=== PATIENT | male | born 1990 | race African-American/Black ===

== ENCOUNTER 2019-06-08 01:08 | Emergency (ER) | payer SELFPAY ==
[2019-06-08] MEDS ORDERED: Proparacaine 0.5% Ophth Soln 15 ML Bottle EYEBOTH ONE (01:18)
[2019-06-08] MEDS ORDERED: prednisoLONE Acetate 1% Ophth Susp 5 ML Bottle EYEBOTH SCH (02:00)
--- NOTE | 2019-06-08 02:00 | EDM.PDOC ---
ED HPI GENERAL MEDICAL PROBLEM - General Chief Complaint: ENT Problem Stated Complaint: BOTH EYES ARE SORE Time Seen by Provider: 06/08/19 01:32 Source of Information: Reports: Patient History Limitations: Reports: No Limitations - History of Present Illness INITIAL COMMENTS - FREE TEXT/NARRATIVE: TRIAGE NOTE -- patient c/o bilateral eye pain, decreased vision and watering. patient unsure what is in his eyes, pt works as a [employer]. pain started 1 hr ago Above-noted. Onset was actually about 2 hours ago. Noted right after he had gotten out of the shower where he had used a body wash the type of which he had never used before. He does not recall actually getting some in his eyes but immediately after he got out of the shower he had pain light sensitivity and redness of his eyes and as it was not improving he came to the ER. No other risk factors are identified. Patient did not take any medication or tried any other measure to moderate his symptoms prior to arrival. Bilateral Eye Pain Score (Numeric/FACES): 10 - Related Data Allergies Allergy/AdvReac Type Severity Reaction Status Date / Time No Known Allergies Allergy Verified 06/08/19 01:21 Home Meds: Home Meds . [No Known Home Meds] 06/08/19 [History] Past Medical History - Past Health History Medical/Surgical History: Denies Medical/Surgical History Social & Family History - Tobacco Use Smoking Status *Q: Never Smoker ED ROS ENT - Review of Systems Review Of Systems: Comprehensive ROS is negative, except as noted in HPI. ED EXAM, ENT - Physical Exam Exam: See Below Exam Limited By: No Limitations General Appearance: Alert, WD/WN, Other (Obvious photophobia) Eye Exam: Bilateral Eye: Conjunctival Injection (Conjunctiva edematous bilaterally), EOMI, PERRL Ears: Normal External Exam Nose: Normal Inspection Mouth/Throat: Normal Inspection Head: Atraumatic, Normocephalic Neck: Normal Inspection, Supple Respiratory/Chest: No Respiratory Distress, Lungs Clear Cardiovascular: Regular Rate, Rhythm GI/Abdominal: Soft, Non-Tender Back: Normal Inspection Extremities: Normal Inspection Neurological: Alert, Oriented, Normal Cognition, No Motor/Sensory Deficits Psychiatric: Normal Affect, Normal Mood Course - Vital Signs Last Recorded V/S: Last Vital Signs Temp 36.1 C 06/08/19 01:18 Pulse 60 06/08/19 01:18 Resp 16 05/02/20 01:18 BP 142/94 H 06/08/19 01:18 Pulse Ox 100 06/08/19 01:18 - Orders/Labs/Meds Orders: Active Orders 24 hr Category Date Time Status Dexamethasone/Tobramycin [Tobradex Ophth Susp] Med 06/08/19 02:15 Ordered 1 ml EYEBOTH NOW Medication Orders Tobramycin/Dexamethasone (Tobradex Ophth Susp) 1 ml EYEBOTH NOW DAHLIA Meds: Medications Generic Name Dose Route Start Last Admin Trade Name Freq PRN Reason Stop Dose Admin Tobramycin/Dexamethasone 1 ml 06/08/19 02:15 Tobradex Ophth Susp EYEBOTH NOW DAHLIA Discontinued Medications Generic Name Dose Route Start Last Admin Trade Name Freq PRN Reason Stop Dose Admin Prednisolone Acetate 1 ml 06/08/19 02:00 Pred Forte 1% Ophth Susp EYEBOTH NOW DAHLIA Proparacaine HCl 2 ml 06/08/19 01:18 06/08/19 01:22 Proparacaine 0.5% Ophth Soln EYEBOTH 06/08/19 01:19 1 drop ONETIME ONE Administration - Re-Assessments/Exams Free Text/Narrative Re-Assessment/Exam: 06/08/19 02:11 On the basis of the history as well as the exam it appears that the patient has a chemical conjunctivitis from something in the body wash he used 2 hours ago. Patient is photophobic to the extent visual acuity cannot be accurately assessed. Discussed with Dr. العراقي construction code administrator transport engineer in [place]. She recommended instilling TobraDex drops and that is ordered. She will see the patient at 10 AM today in the [facility] eye. If the patient has improved sufficiently so he feels like he does not need to come he is still to call the transport engineer. He is also to call on the way to [place] so that the transport engineer knows that he is coming as she is making a special trip to the clinic to see this patient. Departure - Departure Time of Disposition: 02:13 Disposition: Home, Self-Care 01 Condition: Fair Clinical Impression: Chemical conjunctivitis of both eyes - Discharge Information Referrals: PCP,None [Primary Care Provider] - Forms: ED Department Discharge Additional Instructions: You have been seen for what we call a chemical conjunctivitis, this is inflammation of the conjunctiva which is the membrane covering the white part of the eye. Apparently there was something in the body wash you used a couple of hours ago that provoked this. We have consulted an transport engineer in [place], Dr. العراقي, and she will be happy to see you in her clinic this morning at 10 AM. If you are sufficiently improved that you think you do not need to be seen you still need to call her for advice. She is making a special trip to the clinic to see you so she wants you to call when you are 30 or 45 minutes out of [place] to confirm that she will be there. While in the ER we have given a combination of antibiotic and steroid on the advice of the transport engineer. The phone number to call for [facility] and Dr. العراقي is [phone]. Sepsis Event Note - Evaluation Sepsis Screening Result: No Definite Risk - Focused Exam Vital Signs: Vital Signs Temp Pulse Resp BP Pulse Ox 06/08/19 01:18 36.1 C 60 16 142/94 H 100 Date Exam was Performed: 06/08/19 Time Exam was Performed: 02:08 - My Orders Last 24 Hours: My Active Orders 06/08/19 02:15 Dexamethasone/Tobramycin [Tobradex Ophth Susp] 1 ml EYEBOTH NOW - Assessment/Plan Last 24 Hours: My Active Orders 06/08/19 02:15 Dexamethasone/Tobramycin [Tobradex Ophth Susp] 1 ml EYEBOTH NOW
[2019-06-08] MEDS ORDERED: Dexamethasone/Tobramycin 0.1-0.3% Ophth Susp 5 ML Bottle EYEBOTH SCH (02:15)
== END 2019-06-08 02:32 | disposition home or self-care (01) ==
LOC: JD.ED 01:08
DX: H10.213 Acute toxic conjunctivitis, bilateral (principal); T50.905A Adverse effect of unspecified drugs, medicaments and biological substances, initial encounter
CPT/HCPCS: 99283; A9270